=== PATIENT | female | born 1965 | race African-American/Black ===

== ENCOUNTER 2023-02-06 19:40 | Inpatient (IN) | payer OTHER ==
[2023-02-06 19:48] VITALS: BMI 37.2
[2023-02-06] MEDS ORDERED: ACETAMINOPHEN 1000 MG/100 ML BAG IVPB ONE (19:58)
[2023-02-06] MEDS ORDERED: SODIUM CHLORIDE 0.9% 500 ML INFUS.BAG IV ONE (19:58)
[2023-02-06] MEDS ORDERED: FAMOTIDINE 20 MG/50 ML IVPB 20 MG/50 ML MG IVPB ONE (19:59)
[2023-02-06] MEDS ORDERED: MAG HYDROX/AL HYDROX/SIMETH 30 ML UNIT-DOSE CUP PO ONE (19:59)
[2023-02-06] MEDS ORDERED: ONDANSETRON 4 MG/2 ML VIAL IVPUSH ONE ×3 (20:04→21:30)
[2023-02-06] MEDS ORDERED: ONDANSETRON *ODT* 4 MG TABLET SL ONE (20:05)
[2023-02-06] MEDS ORDERED: ONDANSETRON 4 MG/2 ML VIAL ONE ×2 (20:17→21:52)
[2023-02-06] MEDS ORDERED: ACETAMINOPHEN INJECTION 100 ML IVPB ONE (20:17)
[2023-02-06] MEDS ORDERED: MAG HYDROX/AL HYDROX/SIMETH 30 ML UNIT-DOSE CUP ONE (20:17)
[2023-02-06] MEDS ORDERED: FAMOTIDINE 10 MG/ML VIAL IVPB ONE (20:46)
[2023-02-06 21:10] LABS: BASO % 0.3 % (0-2.0); HEMATOCRIT 39.8 % (32.4-45.2); HEMOGLOBIN 13.2 GM/dL (10.7-15.3); LYMPH % 5.8 % (8-40); MCH 30.1 pg (25.7-33.7); MEAN CELL VOLUME 91.1 fl (80-96); MEAN PLT VOLUME 8.6 fl (7.5-11.1); MONO % 4.1 % (3.8-10.2); NEUT % 89.8 % (42.8-82.8); PLATELET COUNT 378 10^3/uL (134-434); RBC 4.37 M/mm3 (3.60-5.2); RDW 14.2 % (11.6-15.6); WHITE BLOOD COUNT 17.5 K/mm3 (4.0-10.0)
[2023-02-06 21:17] LABS: INR 1.05 (0.83-1.09); PROTHROMBIN TIME (PATIENT) 12.2 SEC (9.7-13.0)
[2023-02-06 21:20] LABS: ACTIVATED PTT 25.1 SECONDS (25.2-36.5)
[2023-02-06] MEDS ORDERED: morphine CARPU-JECT 4 MG/1 ML DISP.SYRIN IVPUSH ONE ×2 (21:25→21:26)
[2023-02-06 21:36] LABS: LACTIC ACID 3.5 mmol/L (0.4-2.0)
[2023-02-06 21:47] LABS: POTASSIUM 3.3 mmol/L (3.5-5.1)
[2023-02-06 21:49] LABS: ALBUMIN 3.9 g/dl (3.4-5.0); CALCIUM 10.4 mg/dL (8.5-10.1)
[2023-02-06 21:52] LABS: CREATININE 0.9 mg/dL (0.55-1.3)
[2023-02-06] MEDS ORDERED: morphine SULFATE 4 MG/ML VIAL ONE (21:52)
[2023-02-06] MEDS ORDERED: PIPERACILLIN/TAZOB 4.5 GM 4.5 GM in DEXTROSE 5%-WATER 100 ML IVPB ONE (21:52)
[2023-02-06 21:53] LABS: TOT PROT 7.6 g/dl (6.4-8.2)
[2023-02-06 21:54] LABS: BILIRUBIN,TOTAL 0.7 mg/dL (0.2-1)
[2023-02-06] MEDS ORDERED: LACTATED RINGERS SOLUTION 1000 ML INFUS.BAG IV ONE (22:14)
[2023-02-06] MEDS ORDERED: HYDROmorphone HCl 2 MG/ML VIAL IVPUSH ONE (22:17)
[2023-02-06] MEDS ORDERED: HYDROmorphone HCl 2 MG/ML VIAL ONE (22:20)
[2023-02-06] MEDS ORDERED: PIPERACILLIN/TAZOB 4.5 GM 4.5 GM/100 ML BAG IVPB ONE (23:17)
[2023-02-07] MEDS ORDERED: HYDROmorphone HCl 2 MG/ML VIAL IVPUSH STA (01:34)
[2023-02-07] MEDS ORDERED: SODIUM CHLORIDE 1,000 ML IV SCH (02:15)
[2023-02-07] MEDS ORDERED: HYDROmorphone HCl 2 MG/ML VIAL IVPB STA (02:15)
[2023-02-07] MEDS ORDERED: HYDROmorphone HCl 2 MG/ML VIAL ONE (02:24)
[2023-02-07] MEDS ORDERED: SODIUM CHLORIDE 1,000 ML with POTASSIUM CHLORIDE 30 MEQ IV SCH (03:19)
[2023-02-07] MEDS ORDERED: SODIUM CHLORIDE 1,000 ML with POTASSIUM CHLORIDE 20 MEQ IV SCH (04:51)
[2023-02-07] MEDS ORDERED: HYDROmorphone HCl 2 MG/ML VIAL IVPB PRN ×4 (05:44→10:44)
[2023-02-07] MEDS: LEVOTHYROXINE NA 200 MCG TABLET PO SCH (06:35)
[2023-02-07] MEDS ORDERED: HYDROmorphone HCl 2 MG/ML VIAL IVPUSH ONE (07:17)
[2023-02-07] MEDS ORDERED: HYDROmorphone HCl 2 MG/ML VIAL IVPB ONE (07:17)
[2023-02-07 08:17] LABS: HEMATOCRIT 39.1 % (32.4-45.2); MCH 30.3 pg (25.7-33.7); MCHC 33.4 g/dl (32.0-36.0); MEAN CELL VOLUME 90.9 fl (80-96); MEAN PLT VOLUME 8.6 fl (7.5-11.1); PLATELET COUNT 328 10^3/uL (134-434); RDW 13.8 % (11.6-15.6); WHITE BLOOD COUNT 15.2 K/mm3 (4.0-10.0)
[2023-02-07 08:38] LABS: POTASSIUM 3.5 mmol/L (3.5-5.1)
[2023-02-07 08:50] LABS: CALCIUM 9.3 mg/dL (8.5-10.1)
[2023-02-07 08:51] LABS: ALBUMIN 3.3 g/dl (3.4-5.0); MAGNESIUM 1.6 mg/dL (1.8-2.4)
[2023-02-07 08:53] LABS: PHOSPHOROUS 3.9 mg/dL (2.5-4.9)
[2023-02-07 08:54] LABS: CREATININE 0.8 mg/dL (0.55-1.3)
[2023-02-07 08:55] LABS: BILIRUBIN,TOTAL 1.2 mg/dL (0.2-1); TOT PROT 6.8 g/dl (6.4-8.2)
[2023-02-07] MEDS: SODIUM CHLORIDE 2,000 ML IV STA ×2 (09:17→11:38)
[2023-02-07] MEDS ORDERED: PIPERACILLIN/TAZOB 3.375 GM 3.375 GM in DEXTROSE 5%-WATER - 50 ML IVPB SCH (10:00)
[2023-02-07] MEDS ORDERED: ENOXAPARIN NA (PORCINE) 40 MG/0.4 ML DISP.SYRIN SQ SCH (10:00)
[2023-02-07] MEDS: SERTRALINE HCL 50 MG TABLET (FP) PO SCH (10:12)
[2023-02-07] MEDS: clonazePAM 0.5 MG TABLET PO SCH (10:12)
[2023-02-07] MEDS ORDERED: HYDROmorphone HCl 2 MG/ML VIAL IVPUSH PRN (11:30)
[2023-02-07] MEDS: ONDANSETRON 4 MG/2 ML VIAL IVPUSH PRN ×2 (11:56→17:45)
[2023-02-07] MEDS: HYDROmorphone HCl 2 MG/ML VIAL IVPB PRN ×3 (12:00→23:44)
[2023-02-07] MEDS: LACTATED RINGERS SOLUTION 1,000 ML/1,000 ML INFUS.BAG IV SCH ×3 (13:45→22:59)
[2023-02-07] MEDS ORDERED: MAGNESIUM SULF 50% (8.12 MEQ/2 ML-1 GM VIAL) IVPB ONE (16:35)
[2023-02-07] MEDS: PIPERACILLIN/TAZOB 4.5 GM 4.5 GM in DEXTROSE 5%-WATER 100 ML IVPB SCH (18:54)
[2023-02-07] MEDS ORDERED: ZOLPIDEM TARTRATE 5 MG TABLET PO PRN (22:00)
[2023-02-08] MEDS: ONDANSETRON 4 MG/2 ML VIAL IVPUSH PRN ×2 (00:30→09:01)
[2023-02-08] MEDS: PIPERACILLIN/TAZOB 4.5 GM 4.5 GM in DEXTROSE 5%-WATER 100 ML IVPB SCH ×3 (01:08→17:03)
[2023-02-08] MEDS: LACTATED RINGERS SOLUTION 1,000 ML/1,000 ML INFUS.BAG IV SCH ×3 (03:24→09:45)
[2023-02-08] MEDS ORDERED: ACETAMINOPHEN 325 MG TABLET (FP) PO PRN (05:04)
[2023-02-08] MEDS ORDERED: TRIMETHOBENZAMIDE HCL 200MG/2ML INJ IM ONE (05:05)
[2023-02-08] MEDS ORDERED: ACETAMINOPHEN 1000 MG/100 ML BAG IVPB ONE (05:12)
[2023-02-08] MEDS: HYDROmorphone HCl 2 MG/ML VIAL IVPB PRN ×3 (06:15→22:08)
[2023-02-08] MEDS: LEVOTHYROXINE NA 200 MCG TABLET PO SCH (06:36)
[2023-02-08 08:42] LABS: INR 1.33 (0.83-1.09); PROTHROMBIN TIME (PATIENT) 15.4 SEC (9.7-13.0)
[2023-02-08 08:55] LABS: POTASSIUM 3.2 mmol/L (3.5-5.1)
[2023-02-08 08:56] LABS: HEMATOCRIT 31.5 % (32.4-45.2); HEMOGLOBIN 10.6 GM/dL (10.7-15.3); MCH 30.6 pg (25.7-33.7); MCHC 33.5 g/dl (32.0-36.0); MEAN CELL VOLUME 91.2 fl (80-96); MEAN PLT VOLUME 8.7 fl (7.5-11.1); PLATELET COUNT 277 10^3/uL (134-434); RBC 3.46 M/mm3 (3.60-5.2); RDW 14.1 % (11.6-15.6); WHITE BLOOD COUNT 24.8 K/mm3 (4.0-10.0)
[2023-02-08 09:02] LABS: CREATININE 0.6 mg/dL (0.55-1.3)
[2023-02-08 09:03] LABS: BLOOD UREA NITROGEN 4.9 mg/dL (7-18); CALCIUM 8.9 mg/dL (8.5-10.1)
[2023-02-08 09:04] LABS: BILIRUBIN,TOTAL 0.8 mg/dL (0.2-1); TOT PROT 5.2 g/dl (6.4-8.2)
[2023-02-08 09:12] LABS: ALBUMIN 2.4 g/dl (3.4-5.0)
[2023-02-08 09:45] LABS: ANISOCYTOSIS 0; HELMET CELLS 0; HOWELL-JOLLY BODIES 0; MACROCYTOSIS 0; OVALOCYTE 0; ROULEAU 0; SICKELED CELLS 0; TARGET CELLS 0; TEAR DROP CELLS 0; TOXIC GRANULATION 0
[2023-02-08] MEDS ORDERED: PHYTONADIONE 10 MG/1 ML AMP IVPB ONE (10:00)
[2023-02-08] MEDS ORDERED: METOCLOPRAMIDE HCL INJECTION 10 MG/2 ML VIAL IVPUSH PRN (11:04)
[2023-02-08] MEDS: SERTRALINE HCL 50 MG TABLET (FP) PO SCH (11:54)
[2023-02-08] MEDS: clonazePAM 0.5 MG TABLET PO SCH (12:06)
[2023-02-08] MEDS: KCL 10 MEQ IVPB 10 MEQ/100 ML INFUS.BAG IVPB SCH ×3 (13:12→22:03)
[2023-02-08] MEDS ORDERED: INDOMETHACIN 50 MG RECTAL SUPPOSITORY PR ONE ×2 (13:15→14:06)
[2023-02-08] MEDS ORDERED: FENTANYL CITRATE/PF 50 MCG/ML VIAL ONE ×2 (13:27→14:10)
[2023-02-08] MEDS ORDERED: MIDAZOLAM HCL 2 MG/2 ML SINGLE DOSE VIAL ONE (13:27)
[2023-02-08] MEDS ORDERED: LACTATED RINGERS SOLUTION 1,000 ML/1,000 ML INFUS.BAG IV SCH (15:44)
[2023-02-08 18:31] VITALS: RESP 18
[2023-02-08] MEDS ORDERED: KCL 10 MEQ IVPB 10 MEQ/100 ML INFUS.BAG IVPB SCH (21:30)
[2023-02-09 00:37] VITALS: BP 108/64; PULSE 98; TEMP 100.1
== END 2023-02-08 23:50 | disposition short-term general hospital (02) | DRG 439 ==
LOC: JER 19:40 → JERBED 02-07 02:03 → J5S 02-07 05:18
PROVIDERS: ADMIT Internal Medicine
PROC: 0FJB8ZZ Inspection of Hepatobiliary Duct, Via Natural or Artificial Opening Endoscopic (ICD-10-PCS; principal; 2023-02-08 13:30)
DX: K85.10 Biliary acute pancreatitis without necrosis or infection (principal); E87.20 Acidosis, unspecified; K83.09 Other cholangitis; D72.829 Elevated white blood cell count, unspecified; E87.6 Hypokalemia; E03.9 Hypothyroidism, unspecified; L40.9 Psoriasis, unspecified
CPT/HCPCS: 36415; 74181-TC; 76705-TC; 80053; 80061; 82150; 83605; 83690; 83735; 84100; 84478; 84484; 85025; 85027; 85610; 85730; 86140; 87040; 93005; 93010; 99285-25; C9803-CS; U0003; U0005